=== PATIENT | female | born 1950 | race Two or more races ===

== ENCOUNTER 2017-04-19 22:46 | Emergency (ER) | payer OTHER ==
[~2017-04-19] VITALS: Ht 162.6 cm; Wt 81.6 kg
--- NOTE | 2017-04-19 23:20 | NUR ---
TO BED 4 A 66 YO FEMALE BIBFAMILY WITH C/O RT KNEE PAIN AND LEFT WRIST PAIN S/P "FELL WHILE GETTING OUT OF THE CAR"; DISTAL CMS INTACT. DENIES HEAD TRAUMA. PATIENT IS AAOX4, NAD NOTED, WITH BP AT 213/86, PER PATIENT SHE TOOK HYDRALAZINE PO 10MINS ROOM ATTENDANTS. INITIATED COMFORT MEASURES, AWAITING FOR ER MD LAGUNA.
[2017-04-20] MEDS ORDERED: HYDROCODONE/APAP 5/325MG 1 EACH TABLET ONE (00:28)
[2017-04-20] MEDS ORDERED: ONDANSETRON 4 MG TAB.RAPDIS ONE (00:28)
[2017-04-20] MEDS ORDERED: ONDANSETRON 4 MG TAB.RAPDIS PO ONE (00:30)
[2017-04-20] MEDS ORDERED: HYDROCODONE/APAP 5/325MG 1 EACH TABLET PO ONE (00:30)
--- NOTE | 2017-04-20 00:45 | NUR ---
XR AT BEDSIDE.
--- NOTE | 2017-04-20 02:05 | NUR ---
DR SÁNCHEZ AT BEDSIDE TALKING TO PATIENT AND FAMILY.
--- NOTE | 2017-04-20 03:16 | NUR ---
Patient discharged to home in stable condition. Written and verbal after care instructions given. Patient and family verbalized understanding of instruction. Patient walking with a walker, with right knee immobilizer on, intact distal cms. No further complaints.
[2017-04-20 03:17] VITALS: BP 158/78
== END 2017-04-20 03:18 | disposition home or self-care (01) ==
LOC: ER 22:51
DX: S82.001A Unspecified fracture of right patella, initial encounter for closed fracture (principal); S20.211A Contusion of right front wall of thorax, initial encounter; S60.222A Contusion of left hand, initial encounter; S60.221A Contusion of right hand, initial encounter; E03.9 Hypothyroidism, unspecified; E11.9 Type 2 diabetes mellitus without complications; I10 Essential (primary) hypertension; W01.0XXA Fall on same level from slipping, tripping and stumbling without subsequent striking against object, initial encounter; Y92.89 Other specified places as the place of occurrence of the external cause; Y93.89 Activity, other specified; Y99.8 Other external cause status
CPT/HCPCS: 71100-TC; 73130-TC; 73564-TC; A4606; Q0162; Z7610

== ENCOUNTER 2018-05-18 21:50 | Emergency (ER) | payer OTHER ==
[~2018-05-18] VITALS: Ht 165.1 cm; Wt 77.1 kg
--- NOTE | 2018-05-18 22:00 | NUR ---
BIB RA PT AA/OX4. COMPLAINING OF LT SHOULDER PAIN SINCE "2 O' CLOCK". HX OF HTN. EQUAL WREATH INSPECTOR. EQUAL FACIAL SYMMETRY. SBP AT 228. NO S/S OF SOB. SKIN PINK, WARM, DRY. ALL VSS. NAD. WILL CONTINUE TO MONITOR.
[2018-05-18] MEDS ORDERED: HYDROCODONE/APAP 5/325MG 1 EACH TABLET PO ONE (22:30)
[2018-05-18] MEDS ORDERED: IBUPROFEN 600 MG TABLET PO ONE ×2 (22:30→22:36)
[2018-05-18] MEDS ORDERED: HYDROCODONE/APAP 5/325MG 1 EACH TABLET ONE (22:36)
--- NOTE | 2018-05-18 22:40 | NUR ---
XRAY AT BEDSIDE
[2018-05-18] MEDS ORDERED: hydrALAZINE HCL IV 20 MG VIAL IV ONE (23:00)
[2018-05-18 23:05] LABS: BASOPHILS # (AUTO) 0.1 /CMM (0.0-0.2); BASOPHILS % (AUTO) 0.4 % (0.0-2.0); EOSINOPHILS % (AUTO) 0.4 % (0.0-6.0); HEMATOCRIT 34 % (33-45); HEMOGLOBIN 10.9 g/dL (11.5-14.8); LYMPHOCYTES # (AUTO) 1.7 /CMM (0.8-4.8); LYMPHOCYTES % (AUTO) 13.6 % (20.0-44.0); MEAN CORPUSCULAR HEMOGLOBIN 29 PG (26.0-33.0); MEAN CORPUSCULAR HGB CONC 32 g/dl (31.0-36.0); MEAN CORPUSCULAR VOLUME 89 fL (82-100); MONOCYTES # (AUTO) 0.7 /CMM (0.1-1.30); MONOCYTES % (AUTO) 5.5 % (2.0-12.0); NEUTROPHILS % (AUTO) 80.1 % (43.0-81.0); PLATELET COUNT (AUTO) 243 /CMM (150-450); RDW COEFFICIENT OF VARIATION 13.3 (11.5-15.0); RED BLOOD CELL COUNT(AUTO) 3.76 MIL/uL (4.0-5.2); WHITE BLOOD COUNT (AUTO) 12.5 K/uL (4.3-11.0)
[2018-05-18 23:14] LABS: CARBON DIOXIDE 26 mmol/L (21-32); UREA NITROGEN, BLOOD 47 mg/dL (7-18)
[2018-05-18 23:18] LABS: INR 0.9 (0.87-1.13)
[2018-05-18 23:22] LABS: TROPONIN I < 0.017 ng/mL (0.00-0.056)
[2018-05-18] MEDS ORDERED: LABETALOL HCL IV 100MG VIAL ONE (23:25)
[2018-05-18] MEDS ORDERED: LABETALOL 20 MG/4 ML VIAL IV ONE (23:30)
[2018-05-18 23:48] LABS: SODIUM SERUM 133 mmol/L (136-145)
[2018-05-18 23:51] LABS: CALCIUM, SERUM 8.6 mg/dL (8.5-10.1); CHLORIDE 101 mmol/L (98-107); CREATININE 1.9 mg/dL (0.6-1.3); GLUCOSE 360 mg/dL (74-106); POTASSIUM 6.4 mmol/L (3.5-5.1)
[2018-05-19] MEDS ORDERED: INSULIN REGULAR, HUMAN 100 UNIT/ML 10 ML VIAL IV ONE (00:30)
[2018-05-19] MEDS ORDERED: INSULIN REGULAR, HUMAN 100 UNIT/ML 10 ML VIAL ONE (00:43)
--- NOTE | 2018-05-19 01:21 | NUR ---
Patient is resting comfortably in bed with eyes closed. Easily aroused. VSS. FAMILY AT BEDSIDE
--- NOTE | 2018-05-19 02:13 | NUR ---
Patient discharged to home in stable condition. Written and verbal after care instructions given. Patient verbalizes understanding of instruction. IV removed. Catheter intact and site benign. Pressure and 4x4 applied to site. No bleeding noted. AMBULATED WITH STEADY GAIT UPON DC. Addendum: 05/19/18 at 0214 by LOYD INSTRUCTED NOT TO OPERATE OR DRIVE HEAVY MACHINERY.
[2018-05-19 02:15] VITALS: BP 158/60
== END 2018-05-19 02:16 | disposition home or self-care (01) ==
LOC: ER 21:51
DX: M25.512 Pain in left shoulder (principal); E03.9 Hypothyroidism, unspecified; E11.65 Type 2 diabetes mellitus with hyperglycemia; I10 Essential (primary) hypertension; E87.5 Hyperkalemia; N28.9 Disorder of kidney and ureter, unspecified; Z95.1 Presence of aortocoronary bypass graft; Z79.4 Long term (current) use of insulin
CPT/HCPCS: 36415; 71045; 73030; 80048; 82962; 84484; 85025; 85730; 93005; 96374; 96375; 99285; A4606; J1815; J3490 ×2; Z7610

== ENCOUNTER 2019-09-09 15:01 | Emergency (ER) | payer MEDICARE, OTHER ==
[~2019-09-09] VITALS: Ht 165.1 cm; Wt 64.9 kg
[2019-09-09 15:13] VITALS: BP 154/81
--- NOTE | 2019-09-09 15:15 | NUR ---
BIBFAMILY, C/O NON-PRODUCTIVE COUGH X1 WEEK AND WEAKNESS CURRENTLY ON ANTIBIOTIC, PT AWAKE, ALERT, NAD NOTED, VSS, PENDING MD LAGUNA
[2019-09-09] MEDS ORDERED: ALBUTEROL FS 2.5 MG/3 ML VIAL.NEB NEB ONE (15:30)
[2019-09-09] MEDS ORDERED: ALBUTEROL FS 2.5 MG/3 ML VIAL.NEB ONE (15:31)
[2019-09-09 15:44] LABS: BASOPHILS # (AUTO) 0.2 /CMM (0.0-0.2); BASOPHILS % (AUTO) 3.1 % (0.0-2.0); HEMATOCRIT 30 % (33-45); HEMOGLOBIN 10.1 g/dL (11.5-14.8); LYMPHOCYTES # (AUTO) 1.2 /CMM (0.8-4.8); LYMPHOCYTES % (AUTO) 15.6 % (20.0-44.0); MEAN CORPUSCULAR HGB CONC 34 g/dl (31.0-36.0); MEAN CORPUSCULAR VOLUME 87 fL (82-100); MONOCYTES # (AUTO) 0.3 /CMM (0.1-1.30); MONOCYTES % (AUTO) 4.4 % (2.0-12.0); NEUTROPHILS # (AUTO) 5.6 /CMM (1.8-8.9); NEUTROPHILS % (AUTO) 75.9 % (43.0-81.0); PLATELET COUNT (AUTO) 257 /CMM (150-450); RED BLOOD CELL COUNT(AUTO) 3.48 MIL/uL (4.0-5.2); WHITE BLOOD COUNT (AUTO) 7.4 K/uL (4.3-11.0)
[2019-09-09 16:15] LABS: CALCIUM, SERUM 9.2 mg/dL (8.5-10.1); CREATININE 1.9 mg/dL (0.6-1.3); POTASSIUM 4.7 mmol/L (3.5-5.1)
--- NOTE | 2019-09-09 16:36 | NUR ---
URINE COLLECTED AND SENT TO LAB
[2019-09-09 17:31] LABS: EOSINOPHILS % (MANUAL) 3 % (0-4); LYMPHOCYTES % (MANUAL) 15 % (16-48); MONOCYTES % (MANUAL) 7 % (0-11.0); NEUTROPHILS % (MANUAL) 71 (42-76); REACTIVE LYMPHOCYTES 4 % (0-0)
== END 2019-09-09 16:49 | disposition home or self-care (01) ==
LOC: ER 15:02
DX: D64.9 Anemia, unspecified (principal); R05 Cough; R53.1 Weakness; E03.9 Hypothyroidism, unspecified; E11.22 Type 2 diabetes mellitus with diabetic chronic kidney disease; I12.9 Hypertensive chronic kidney disease with stage 1 through stage 4 chronic kidney disease, or unspecified chronic kidney disease; N18.9 Chronic kidney disease, unspecified; Z95.1 Presence of aortocoronary bypass graft
CPT/HCPCS: 36415; 71045-TC; 80048-TC; 85025-TC

== ENCOUNTER 2022-06-16 20:02 | Inpatient (IN) | payer MEDICARE, MEDICAID ==
[~2022-06-16] VITALS: Ht 152.4 cm; Wt 58.1 kg
[2022-06-16] MEDS ORDERED: MORPHINE SULFATE INJ 4 MG/ML DISP.SYRIN ONE (20:28)
[2022-06-16] MEDS ORDERED: ONDANSETRON HCL/PF 4 MG/2 ML VIAL ONE (20:28)
[2022-06-16] MEDS ORDERED: MORPHINE SULFATE INJ 2 MG/ML DISP.SYRIN IV ONE (20:30)
[2022-06-16] MEDS ORDERED: ONDANSETRON HCL/PF 4 MG/2 ML VIAL IVP ONE (20:30)
[2022-06-16 21:00] LABS: BASOPHILS % (AUTO) 0.5 % (0.0-2.0); EOSINOPHILS % (AUTO) 1.6 % (0.0-6.0); HEMATOCRIT 29 % (33-45); HEMOGLOBIN 9.7 g/dL (11.5-14.8); LYMPHOCYTES # (AUTO) 1.4 K/uL (0.8-4.8); LYMPHOCYTES % (AUTO) 17.5 % (20.0-44.0); MEAN CORPUSCULAR HGB CONC 33 g/dl (31.0-36.0); MEAN CORPUSCULAR VOLUME 90 fL (82-100); MONOCYTES # (AUTO) 0.6 K/uL (0.1-1.30); MONOCYTES % (AUTO) 7.7 % (2.0-12.0); NEUTROPHILS # (AUTO) 5.7 K/uL (1.8-8.9); NEUTROPHILS % (AUTO) 72.7 % (43.0-81.0); PLATELET COUNT (AUTO) 201 K/uL (150-450); RED BLOOD CELL COUNT(AUTO) 3.22 MIL/uL (4.0-5.2); WHITE BLOOD COUNT (AUTO) 7.8 K/uL (4.3-11.0)
--- NOTE | 2022-06-16 21:07 | NUR ---
AZUL 889 FROM HOME FOR C/O L HIP PAIN S/P FALL. POSSIBLE FRAC. PLACED IN BED 11 ON MONITOR AND PULSE OX. WORK UP DONE, PENDING XRAY RESULTS. PENDING ADMISSION.
--- NOTE | 2022-06-16 21:08 | NUR ---
FAMILY MADE AWARE OF PLAN OF CARE.
[2022-06-16 21:29] LABS: ALBUMIN 3.7 g/dL (3.4-5.0); BILIRUBIN,DIRECT 0.2 mg/dL (0.0-0.2); BILIRUBIN,TOTAL 0.4 mg/dL (0.2-1.0); TOTAL PROTEIN, SERUM 7.5 g/dL (6.4-8.2)
[2022-06-16 21:37] LABS: CALCIUM, SERUM 9.3 mg/dL (8.5-10.1); POTASSIUM 4.7 mmol/L (3.5-5.1)
--- NOTE | 2022-06-16 22:51 | NUR ---
Radha Borges Daughter in law
[2022-06-16] MEDS ORDERED: DOXA2TAB2 PO (23:12)
[2022-06-16] MEDS ORDERED: CARV25TA2 PO (23:12)
[2022-06-16] MEDS ORDERED: LEVO50TA8 PO (23:12)
[2022-06-16] MEDS ORDERED: ATOR80TA PO (23:12)
[2022-06-16] MEDS ORDERED: ASPI-1420 PO (23:12)
[2022-06-16] MEDS ORDERED: HYDR100T27 PO (23:12)
[2022-06-16] MEDS ORDERED: PANT40TA2 PO (23:12)
[2022-06-16] MEDS ORDERED: INSU100V11 SQ (23:12)
[2022-06-16] MEDS ORDERED: OMEP40CA21 PO (23:12)
[2022-06-16] MEDS ORDERED: CLON0.2T PO (23:12)
[2022-06-16] MEDS ORDERED: AMLO-213 PO (23:12)
[2022-06-16] MEDS ORDERED: FERR325T23 PO (23:12)
--- NOTE | 2022-06-17 00:45 | NUR ---
REPORT GIVEN TO GERRY LUNDBERG FOR [facility]
[2022-06-17 01:40] VITALS: BP_SYST 138; BP_SYST 164; BP_DIAS 71; BP_DIAS 84
--- NOTE | 2022-06-17 01:43 | NUR ---
WHEELED PATIENT TO ROOM
--- NOTE | 2022-06-17 02:36 | NUR ---
MS MARKETING REPS SPORTS AND ENTERTAINMENT NOTE PATIENT ARRIVED ON UNIT VIA GURNEY, ALERT/ORIENTED X 4, PATIENT PRIMARILY PASHTO SPEAKING, ABLE TO MAKE SOME NEEDS KNOWN. PT STABLE ON RA, NO S/S OF DISTRESS OR SOB NOTED, BREATHING EVEN AND UNLABORED. IV ACCESS ON LAC #20G INTACT AND FLUSHING WELL. PATIENT C/O OF LEFT HIP PAIN, AWAITING MD ORDERS. PATIENT BELONGINGS DOCUMENTED. ORIENTED PATIENT TO ROOM AND HOW TO USE CALL LIGHT. SAFETY MEASURES IN PLACE: CALL LIGHT WITHIN REACH, SIDE RAILS UP X 2, BED LOCKED IN LOWEST POSITION, BED ALARM ON. WILL CONTINUE TO MONITOR PATIENT
[2022-06-17] MEDS: HYDROMORPHONE 1 MG/1 ML DISP.SYRIN IV PRN ×3 (03:26→19:58)
[2022-06-17] MEDS: IV 1/2NS 1000 ML 1,000 ML IV SCH ×2 (03:27→15:50)
[2022-06-17] MEDS ORDERED: ZOLPIDEM TARTRATE 5 MG TABLET PO PRN ×2 (03:30→11:30)
[2022-06-17] MEDS ORDERED: ONDANSETRON HCL/PF 4 MG/2 ML VIAL IV PRN (03:30)
[2022-06-17] MEDS ORDERED: ACETAMINOPHEN 325 MG TABLET PO PRN ×2 (03:30→11:30)
[2022-06-17] MEDS ORDERED: DEXTROSE 50%-WATER 50 ML DISP.SYRIN IV PRN ×3 (03:30→11:30)
[2022-06-17 04:00] VITALS: BP 138/84
[2022-06-17] MEDS: BLOOD SUGAR DIAGNOSTIC 1 EACH STRIP IN SCH ×3 (06:17→17:49)
[2022-06-17] MEDS: INSULIN REGULAR, HUMAN 100 UNIT/ML 3 ML VIAL SQ PRN ×5 (06:17→17:49)
[2022-06-17 06:34] LABS: BASOPHILS % (AUTO) 0.4 % (0.0-2.0); EOSINOPHILS % (AUTO) 0.2 % (0.0-6.0); HEMATOCRIT 27 % (33-45); HEMOGLOBIN 8.9 g/dL (11.5-14.8); LYMPHOCYTES # (AUTO) 0.8 K/uL (0.8-4.8); LYMPHOCYTES % (AUTO) 10.6 % (20.0-44.0); MEAN CORPUSCULAR HGB CONC 34 g/dl (31.0-36.0); MEAN CORPUSCULAR VOLUME 90 fL (82-100); MONOCYTES # (AUTO) 0.4 K/uL (0.1-1.30); MONOCYTES % (AUTO) 5.4 % (2.0-12.0); NEUTROPHILS # (AUTO) 6.5 K/uL (1.8-8.9); NEUTROPHILS % (AUTO) 83.4 % (43.0-81.0); PLATELET COUNT (AUTO) 185 K/uL (150-450); RED BLOOD CELL COUNT(AUTO) 2.94 MIL/uL (4.0-5.2); WHITE BLOOD COUNT (AUTO) 7.8 K/uL (4.3-11.0)
--- NOTE | 2022-06-17 06:42 | NUR ---
DIRECTOR NON PROFIT CLOSING NOTE PATIENT SLEEPING IN BED, ALERT/ORIENTED X 4, PATIENT B[place] SPEAKING. PATIENT STABLE ON RA, NO S/S OF DISTRESS OR SOB NOTED, BREATHING EVEN AND UNLABORED. PATIENT ON EXTERNAL RECLAMATION SUPERVISOR READING SINUS RHYTHM WITH BBB AND OCCASSIONAL PVC'S, HR: 73 . PATIENT KEPT NPO EXCEPT MEDS. LEFT AC IV ACCESS INTACT AND INFUSING 1/2 NS @ 100 ML/HR. MEDICATIONS GIVEN ORDERED, PT NEEDS MET THROUGHOUT SHIFT. SAFETY MEASURES IN PLACE: CALL LIGHT WITHIN REACH, SIDE RAILS UP X 2, BED LOCKED IN LOWEST POSITION, BED ALARM ON. WILL ENDORSE TO DAYSHIFT NURSE FOR CONTINUITY OF CARE
[2022-06-17 07:08] LABS: CALCIUM, SERUM 8.9 mg/dL (8.5-10.1); CREATININE 2.1 mg/dL (0.6-1.3); POTASSIUM 5.2 mmol/L (3.5-5.1)
--- NOTE | 2022-06-17 07:37 | NUR ---
MS RN OPENING NOTE RECEIVED PT ASLEEP, EASILY AROUSED. PT IS A/O X4, ABLE TO MAKE NEEDS KNOWN. ON RA, TOLERATING WELL. NO SOB NOTED. NOT IN ANY SIGN OF RESPIRATORY DISTRESS. ON TELE OUTBOUND TELEMARKETER WITH CURRENT READING OF NORMAL SINUS RHYTHM WITH HR 70. IV ACCESS IN LAC G #20 INTACT AND PATENT WITH 1/2 NS INFUSING AT 100ML/HR. SAFETY MEASURES IN PLACE: BED IN LOWEST AND LOCKED POSITION, SIDE RAILS UPX2, AND CALL LIGHT WITHIN REACH. WILL CONTINUE TO MONITOR PT.
[2022-06-17 08:00] VITALS: BP 124/58
[2022-06-17 08:08] LABS: BILIRUBIN,URINE NEGATIVE (NEGATIVE); COLOR,URINE YELLOW (YELLOW); LEUKOCYTE ESTERASE ,URINE SMALL (NEGATIVE); NITRITE, URINE NEGATIVE (NEGATIVE); PROTEIN,URINE 100 mg/dl (NEGATIVE); UGLUCOSE NEGATIVE (NEGATIVE); UROBILINOGEN,URINE 0.2 EU/dL (0.2)
[2022-06-17 08:47] LABS: BACTERIA,URINE None seen /HPF (None Seen); RBC,URINE NONE SEEN /HPF (0-2); SQUAMOUS EPITHELIAL CELL,UR Few /HPF (None Seen); WBC,URINE 0-2 /HPF (0-3)
[2022-06-17] MEDS: FERROUS SULFATE (325 MG) 325 MG/TAB TABLET PO SCH ×2 (08:48→17:48)
[2022-06-17] MEDS: ASPIRIN EC 81 MG TABLET.DR PO SCH (08:48)
[2022-06-17] MEDS: LEVOTHYROXINE SODIUM 50 MCG TABLET PO SCH (08:48)
[2022-06-17] MEDS: AMLODIPINE BESYLATE 10 MG TABLET PO SCH (08:49)
[2022-06-17] MEDS: CARVEDILOL 12.5 MG TABLET PO SCH ×2 (08:51→17:48)
--- NOTE | 2022-06-17 11:07 | NUR ---
RN NOTE PT C/O NAUSEA AND VOMITED X1 AND REQUESTED FOR ZOFRAN. ZOFRAN 4MG GIVEN ORDERED PRN Q4HR. WILL MONITOR AND REASSESS PT.
[2022-06-17] MEDS ORDERED: IV 1/2NS 1000 ML 1,000 ML IV PRN (11:30)
[2022-06-17] MEDS ORDERED: ONDANSETRON HCL/PF 4 MG/2 ML VIAL IVP PRN (11:30)
[2022-06-17] MEDS ORDERED: HYDROMORPHONE 1 MG/1 ML DISP.SYRIN IV PRN (11:30)
[2022-06-17] MEDS ORDERED: INSULIN REGULAR, HUMAN 100 UNIT/ML 3 ML VIAL SQ PRN (11:30)
[2022-06-17 12:00] VITALS: BP 176/62
[2022-06-17] MEDS ORDERED: BLOOD SUGAR DIAGNOSTIC 1 EACH STRIP IN SCH ×3 (12:00)
[2022-06-17] MEDS: BLOOD SUGAR DIAGNOSTIC 1 EACH STRIP VI SCH ×3 (12:28→22:00)
--- NOTE | 2022-06-17 12:30 | NUR ---
RN NOTE ACCUCHECK AND INSULIN DONE UNDER MODERATE SLIDING SCALE ACHS NOT THE Q6HRS NPO. PT IS NOT NPO AT THIS TIME.
--- NOTE | 2022-06-17 14:00 | NUR ---
RN NOTE PER CHARGED NURSEVAHE, RENAL ULTRASOUNDS WAS DONE, AND PER ELECTROENCEPHALOGRAM TECHNOLOGIST, PT NOTED WITH URINARY RETENTION OF 1L. PER CHARGED NURSE TO INSERT A JETER ON THE PT. JETER CATHETER INSERTED WITH 4OOML OUTPUT AT THIS TIME. WILL MONITOR PT FOR URINARY RETENTION.
[2022-06-17 16:15] LABS: CREATININE, URINE 38.5 MG/DL (30.0-125.0)
--- NOTE | 2022-06-17 16:26 | NUR ---
RN NOTE RECEIVED A CALL FROM DR. CONSTANTINO, ANESTHESIOLOGIST WITH ORDERS TO DO A TYPE AND SCREEN AND 2 UNITS PACK RBCS ON STANDBY, JUST IN CASE TRANSFUSION IS NEEDED DURING SURGERY, TO KEEP HEMOGLOBIN ABOVE 8.
--- NOTE | 2022-06-17 17:50 | NUR ---
RN NOTE ACCUCHECK AND INSULIN DONE UNDER MODERATE SLIDING SCALE ACHS NOT THE Q6HRS NPO. PT IS NOT NPO AT THIS TIME.
[2022-06-17] MEDS: DOXAZOSIN MESYLATE (1 MG) 1 MG TABLET PO SCH (18:02)
--- NOTE | 2022-06-17 19:30 | NUR ---
noc rn opening received patient in bed, alert and oriented, thai speaking. no s/s of apparent distress on room air. pain when she moves. tele monitor reading sr with 75 bpm at this time. michael.ankur #20 g running 1/2 ns @100mls/hr. 2 family members at bedside, was endorsed to me that patient is in for procedure for tomorrow but POA which is the daughter Gloria refusing to sign at this time wanting to speak to the Doctor first. made charge nurse, Ita about the situation. re-oriented and encouraged wit the use of call light. safety in place. will continue with plan of care for patient.
[2022-06-17 20:00] VITALS: BP 143/57
--- NOTE | 2022-06-17 20:00 | NUR ---
noc rn note spoke to Gloria, daughter, again before she left and asked who the DPOA for patient and per Gloria, her sister ALYSON is the DPOA for patient. did tell Gloria that per report, Dr. Duran's PA, Nayeli Soriano, already talked with ALYSON on the telephone regarding the procedure already and it should be the DPOA that will give consent. Talked to Alyson on the phone as well and per her she is still wanting to hear from nephrology standpoint. Will further clarify later when the sched for the procedure comes out.
--- NOTE | 2022-06-17 20:00 | NUR ---
given dilaudid 1mg PRN as ordered. patient in pain after turning and repositioning. v/s up at this time. will re-assess.
--- NOTE | 2022-06-17 20:12 | NUR ---
GAME DESIGN INSTRUCTOR CLOSING NOTE PT AWAKE AND RESTING IN BED. PT IS A/O X4, ABLE TO MAKE NEEDS KNOWN. ON RA, TOLERATING WELL. NO SOB NOTED. NOT IN ANY SIGN OF RESPIRATORY DISTRESS. ON TELE BUS AND RAIL OPERATOR WITH CURRENT READING OF NORMAL SINUS RHYTHM WITH BBB, HR 75. IV ACCESS IN LAC G #20 INTACT AND PATENT WITH 1/2 NS INFUSING AT 100ML/HR. ALL NEEDS ATTENDED. KEPT CLEAN AND COMFORTABLE. SAFETY MEASURES IN PLACE: BED IN LOWEST AND LOCKED POSITION, SIDE RAILS UPX2, AND CALL LIGHT WITHIN REACH. ENDORSED TO MAMMAL KEEPER NURSE FOR EZEKIEL.
--- NOTE | 2022-06-17 20:42 | NUR ---
bp recheck 143/57 after pain medication will cont. to monitor.
[2022-06-17] MEDS: ATORVASTATIN 40 MG TABLET PO SCH (21:26)
--- NOTE | 2022-06-17 22:31 | NUR ---
noc rn note Talked with Gloria, Daughter on the phone since it is her number that is on the patient chart. Asked for Radha's number # [phone]. Dialed the number no answer. left a msg.
[2022-06-18] VITALS (18 sets, daily range): BP systolic 100–178; BP diastolic 44–87
[2022-06-18] MEDS: BLOOD SUGAR DIAGNOSTIC 1 EACH STRIP IN SCH ×4 (00:22→18:39)
[2022-06-18] MEDS: IV 1/2NS 1000 ML 1,000 ML IV SCH ×3 (02:37→19:25)
[2022-06-18] MEDS: HYDROMORPHONE 1 MG/1 ML DISP.SYRIN IV PRN ×2 (02:57→20:39)
[2022-06-18] MEDS: INSULIN REGULAR, HUMAN 100 UNIT/ML 3 ML VIAL SQ PRN (06:18)
--- NOTE | 2022-06-18 06:20 | NUR ---
noc rn note blood sugar 166 this am. non-administered insulin because of patient's npo status and per daughter patient's blood sugar usually goes down drastically.
[2022-06-18 06:46] LABS: BASOPHILS % (AUTO) 0.4 % (0.0-2.0); HEMATOCRIT 23 % (33-45); HEMOGLOBIN 7.9 g/dL (11.5-14.8); LYMPHOCYTES # (AUTO) 0.9 K/uL (0.8-4.8); LYMPHOCYTES % (AUTO) 14.5 % (20.0-44.0); MEAN CORPUSCULAR HGB CONC 34 g/dl (31.0-36.0); MEAN CORPUSCULAR VOLUME 90 fL (82-100); MONOCYTES # (AUTO) 0.6 K/uL (0.1-1.30); MONOCYTES % (AUTO) 9.5 % (2.0-12.0); NEUTROPHILS # (AUTO) 4.7 K/uL (1.8-8.9); NEUTROPHILS % (AUTO) 74.6 % (43.0-81.0); PLATELET COUNT (AUTO) 149 K/uL (150-450); RED BLOOD CELL COUNT(AUTO) 2.58 MIL/uL (4.0-5.2); WHITE BLOOD COUNT (AUTO) 6.3 K/uL (4.3-11.0)
--- NOTE | 2022-06-18 07:10 | NUR ---
ms rn received on bed, awake,alert,oriented x4, cuban speaking,not in any form of distress, s/p fall , fx left hip for surgery today.
[2022-06-18] MEDS: PANTOPRAZOLE 40 MG TABLET.DR PO SCH (07:30)
[2022-06-18] MEDS: BLOOD SUGAR DIAGNOSTIC 1 EACH STRIP VI SCH ×4 (07:30→22:00)
[2022-06-18] MEDS ORDERED: ANESTHESIA TRAY IN PYXIS 1 EA TRAY MC ONE ×2 (07:51→15:26)
[2022-06-18] MEDS ORDERED: BUPIVACAINE 0.25% 75 MG/30 ML VIAL ONE ×2 (07:51→13:26)
[2022-06-18] MEDS ORDERED: POLYMYXIN B SULFATE 500,000 UNITS ONE (07:51)
--- NOTE | 2022-06-18 08:00 | NUR ---
ms rn daughter Radha called , wants to speak w/ kidney doctor for risk of having surgery,gave dr. ca phone number.
[2022-06-18 08:50] LABS: CALCIUM, SERUM 8.4 mg/dL (8.5-10.1); CREATININE 2.1 mg/dL (0.6-1.3); MAGNESIUM 2.2 mg/dL (1.8-2.4); PHOSPHORUS 4.9 mg/dL (2.5-4.9)
[2022-06-18] MEDS: CARVEDILOL 12.5 MG TABLET PO SCH ×2 (09:00→17:00)
[2022-06-18] MEDS: ASPIRIN EC 81 MG TABLET.DR PO SCH (09:00)
[2022-06-18] MEDS: FERROUS SULFATE (325 MG) 325 MG/TAB TABLET PO SCH ×2 (09:00→17:00)
[2022-06-18] MEDS: AMLODIPINE BESYLATE 10 MG TABLET PO SCH (09:00)
[2022-06-18] MEDS: LEVOTHYROXINE SODIUM 50 MCG TABLET PO SCH (09:00)
--- NOTE | 2022-06-18 09:00 | NUR ---
ms shawnee solomon called, agreeing w/ surgery, shawnee cortes witnessed tel phone consent.
--- NOTE | 2022-06-18 11:03 | NUR ---
ms rn started on blood transfusion w/o reaction, v/s monitored.
[2022-06-18] MEDS ORDERED: FENTANYL PF 100MCG/2ML AMPUL ONE (13:44)
[2022-06-18] MEDS ORDERED: MIDAZOLAM HCL 2 MG/2ML VIAL ONE (13:44)
[2022-06-18] MEDS ORDERED: ROCURONIUM BROMIDE 50 MG/5 ML ONE (13:45)
[2022-06-18] MEDS ORDERED: FAMOTIDINE/PF INJ 20 MG/2 ML VIAL IV ONE (13:45)
[2022-06-18] MEDS ORDERED: hydrALAZINE HCL IV 20 MG VIAL ONE (15:21)
--- NOTE | 2022-06-18 16:50 | NUR ---
ms editor farm journal called, patient will be transferred to [facility] for observation, will call for report, belongings will be sent to icu.
[2022-06-18] MEDS ORDERED: DOCUSATE SODIUM 100 MG CAPSULE PO PRN (17:00)
[2022-06-18] MEDS ORDERED: FUROSEMIDE 20 MG/2 ML VIAL IV ONE (17:00)
[2022-06-18] MEDS ORDERED: MORPHINE SULFATE INJ 4 MG/ML DISP.SYRIN IV PRN (17:00)
[2022-06-18] MEDS ORDERED: ONDANSETRON HCL/PF 4 MG/2 ML VIAL IVP PRN (17:00)
[2022-06-18] MEDS: DOXAZOSIN MESYLATE (1 MG) 1 MG TABLET PO SCH (18:00)
[2022-06-18 20:13] LABS: BASOPHILS % (AUTO) 0.1 % (0.0-2.0); EOSINOPHILS % (AUTO) 0.1 % (0.0-6.0); HEMATOCRIT 32 % (33-45); HEMOGLOBIN 10.8 g/dL (11.5-14.8); LYMPHOCYTES # (AUTO) 0.2 K/uL (0.8-4.8); LYMPHOCYTES % (AUTO) 2.3 % (20.0-44.0); MEAN CORPUSCULAR HGB CONC 34 g/dl (31.0-36.0); MEAN CORPUSCULAR VOLUME 89 fL (82-100); MONOCYTES # (AUTO) 0.4 K/uL (0.1-1.30); MONOCYTES % (AUTO) 4.2 % (2.0-12.0); NEUTROPHILS % (AUTO) 93.3 % (43.0-81.0); PLATELET COUNT (AUTO) 125 K/uL (150-450); RED BLOOD CELL COUNT(AUTO) 3.62 MIL/uL (4.0-5.2); WHITE BLOOD COUNT (AUTO) 9.7 K/uL (4.3-11.0)
[2022-06-18] MEDS: ANCEF 1 GM/50 ML D5W IV SCH ×2 (21:58)
[2022-06-18] MEDS ORDERED: SENNOSIDES 8.6 MG TABLET PO PRN (22:00)
[2022-06-18] MEDS: ATORVASTATIN 40 MG TABLET PO SCH (22:00)
[2022-06-18] MEDS ORDERED: BISACODYL SUPP (10 MG) 10 MG/SUPP.RECT SUPP.RECT RC PRN (22:00)
[2022-06-19] VITALS (25 sets, daily range): BP systolic 122–163; BP diastolic 48–107
[2022-06-19] MEDS: BLOOD SUGAR DIAGNOSTIC 1 EACH STRIP IN SCH ×3 (00:47→12:23)
[2022-06-19 05:28] LABS: BASOPHILS % (AUTO) 0.1 % (0.0-2.0); EOSINOPHILS % (AUTO) 0.1 % (0.0-6.0); HEMATOCRIT 29 % (33-45); HEMOGLOBIN 9.8 g/dL (11.5-14.8); LYMPHOCYTES # (AUTO) 0.5 K/uL (0.8-4.8); LYMPHOCYTES % (AUTO) 3.7 % (20.0-44.0); MEAN CORPUSCULAR HGB CONC 34 g/dl (31.0-36.0); MEAN CORPUSCULAR VOLUME 89 fL (82-100); MONOCYTES # (AUTO) 0.9 K/uL (0.1-1.30); MONOCYTES % (AUTO) 6.3 % (2.0-12.0); NEUTROPHILS # (AUTO) 12.5 K/uL (1.8-8.9); NEUTROPHILS % (AUTO) 89.8 % (43.0-81.0); PLATELET COUNT (AUTO) 132 K/uL (150-450); RED BLOOD CELL COUNT(AUTO) 3.28 MIL/uL (4.0-5.2); WHITE BLOOD COUNT (AUTO) 13.9 K/uL (4.3-11.0)
[2022-06-19] MEDS: IV 1/2NS 1000 ML 1,000 ML IV SCH ×2 (05:31→15:09)
[2022-06-19 05:50] LABS: CALCIUM, SERUM 7.9 mg/dL (8.5-10.1); CREATININE 2.5 mg/dL (0.6-1.3); MAGNESIUM 1.8 mg/dL (1.8-2.4); PHOSPHORUS 5.7 mg/dL (2.5-4.9); POTASSIUM 4.8 mmol/L (3.5-5.1)
[2022-06-19] MEDS: ANCEF 1 GM/50 ML D5W IV SCH ×2 (06:44)
[2022-06-19] MEDS: BLOOD SUGAR DIAGNOSTIC 1 EACH STRIP VI SCH ×4 (06:49→21:06)
--- NOTE | 2022-06-19 07:30 | NUR ---
RN NOTE PT OBSERVED IN BED WITH HOB >30 DEGREES. PT IS ON 5L SIMPLE MASK TOLERATING WELL WITH NO SIGNS OF DISTRESS OR LABORED BREATHING O2 SAT 100%. PT IS A/OX2-3 PORTUGUESE AND UNDERSTANDS LITTLE JAPANESE. PT TELE MONITOR SR AT THIS TIME; FC IS IN PLACE DRAINING URINE TO GRAVITY. NPO EXCEPT FOR MEDS AT THIS TIME. IV ACCESS L AC AND R FA INFUSING WITH 1/2 NS @ 100 ML/HR. BED IS LOCKED IN LOWEST POSITION X2 BED RAILS UP CALL GO IS WITHIN REACH AND ALL HOSPITAL SAFETY PROTOCOLS ARE IN PLACE. WILL CONTINUE TO MONITOR THIS SHIFT.
[2022-06-19] MEDS: FERROUS SULFATE (325 MG) 325 MG/TAB TABLET PO SCH ×2 (08:26→16:03)
[2022-06-19] MEDS: LEVOTHYROXINE SODIUM 50 MCG TABLET PO SCH (08:27)
[2022-06-19] MEDS: ASPIRIN EC 81 MG TABLET.DR PO SCH (08:27)
[2022-06-19] MEDS: AMLODIPINE BESYLATE 10 MG TABLET PO SCH (08:27)
[2022-06-19] MEDS: CARVEDILOL 12.5 MG TABLET PO SCH ×2 (08:30→16:03)
[2022-06-19] MEDS: ENOXAPARIN SODIUM 30 MG/0.3 ML DISP.SYRIN SQ SCH (08:30)
[2022-06-19] MEDS: PANTOPRAZOLE 40 MG TABLET.DR PO SCH (08:31)
[2022-06-19] MEDS ORDERED: HYDROMORPHONE 1 MG/1 ML DISP.SYRIN IV PRN (11:00)
[2022-06-19] MEDS: INSULIN REGULAR, HUMAN 100 UNIT/ML 3 ML VIAL SQ PRN ×2 (12:31→17:46)
[2022-06-19] MEDS: DOXAZOSIN MESYLATE (1 MG) 1 MG TABLET PO SCH (17:40)
--- NOTE | 2022-06-19 18:40 | NUR ---
RN NOTE: TRANSFER PT IS STABLE AT THIS TIME AND TRANSFERRED TO . REPORT GIVEN TO TAMIKA MONTOYA. PT TRANSFERRED WITH ALL MEDICATIONS AND BELONGINGS INCLUDING UPPER AND LOWER DENTURES.
--- NOTE | 2022-06-19 18:56 | NUR ---
ms rn received a new transfer from icu,71 year old female, s/p left hip ORIF, awake,alert,oriented x3, surgical site w/ dressing dry and intact, denies pain at this time, nsr on monitor, hoang intact w/ yellowish urine output, reposition for comfort,all needs attended.
--- NOTE | 2022-06-19 19:30 | NUR ---
RN OPENING NOTE PATIENT RECEIVED IN BED, EYES CLOSED, AWAKENED WITH VERBAL AND TOUCH STIMULI. PATIENT IS A/O X 2-3 AT THIS TIME, NOTED TO BE MILDLY LETHARGIC. PATIENT ON 2 LPM O2 SUPPLEMENT VIA NC. TOLERATING WELL, BREATHING EVEN AND UNLABORED, NO SOB NOTED, O2 SAT 96%. PATIENT'S TELE MONITOR READS SR 80 BPM. JETER CATHETER DRAINING YELLOW URINE VIA GRAVITY. PATIENT HAS LAC 2O G RUNNING IVF AND A RFA IV ACCESS ON SALINE LOCK. SAFETY MEASURES IN PLACE: BED LOCKED AND IN LOWEST POSITION, CALL LIGHT WITHIN REACH, SIDE RAILS UP. WILL MONITOR PATIENT CLOSELY.
[2022-06-19] MEDS: ATORVASTATIN 40 MG TABLET PO SCH (21:06)
[2022-06-19] MEDS: *INSULIN REGULAR(HUMULIN R)HUM 100 UNIT/ML VIAL SQ PRN (21:18)
--- NOTE | 2022-06-19 21:18 | NUR ---
RN NOTE BS 111 MG/DL, NO COVERAGE GIVEN. WILL PROVIDE PATIENT FOOD THAT FAMILY BROUGHT. WILL MONITOR FOR HYPO/HYPERGLYCEMIA.
[2022-06-20] VITALS: BP 154/51
[2022-06-20] MEDS: IV 1/2NS 1000 ML 1,000 ML IV SCH ×3 (01:39→21:15)
[2022-06-20 04:00] VITALS: BP 147/46
--- NOTE | 2022-06-20 05:23 | NUR ---
RN NOTE PATIENT SEEN SLEEPING. NOT IN ANY APPARENT DISTRESS
[2022-06-20 06:16] LABS: BASOPHILS % (AUTO) 0.3 % (0.0-2.0); EOSINOPHILS % (AUTO) 0.8 % (0.0-6.0); HEMATOCRIT 25 % (33-45); HEMOGLOBIN 8.4 g/dL (11.5-14.8); LYMPHOCYTES # (AUTO) 0.7 K/uL (0.8-4.8); LYMPHOCYTES % (AUTO) 8.1 % (20.0-44.0); MEAN CORPUSCULAR HGB CONC 34 g/dl (31.0-36.0); MEAN CORPUSCULAR VOLUME 88 fL (82-100); MONOCYTES # (AUTO) 0.7 K/uL (0.1-1.30); MONOCYTES % (AUTO) 8.9 % (2.0-12.0); NEUTROPHILS # (AUTO) 6.9 K/uL (1.8-8.9); NEUTROPHILS % (AUTO) 81.9 % (43.0-81.0); PLATELET COUNT (AUTO) 121 K/uL (150-450); RED BLOOD CELL COUNT(AUTO) 2.77 MIL/uL (4.0-5.2); WHITE BLOOD COUNT (AUTO) 8.4 K/uL (4.3-11.0)
[2022-06-20] MEDS: INSULIN REGULAR, HUMAN 100 UNIT/ML 3 ML VIAL SQ PRN ×3 (06:35→16:50)
[2022-06-20] MEDS: BLOOD SUGAR DIAGNOSTIC 1 EACH STRIP VI SCH ×4 (06:35→21:36)
--- NOTE | 2022-06-20 06:50 | NUR ---
RN CLOSING NOTE PATIENT IN BED, EYES CLOSED, AWAKENED WITH VERBAL AND TOUCH STIMULI. PATIENT IS A/O X 2-3 DURING THE SHIFT. PATIENT ON 2 LPM O2 SUPPLEMENT VIA NC. TOLERATING WELL, BREATHING EVEN AND UNLABORED, NO SOB NOTED, O2 SAT 97%. PATIENT'S TELE MONITOR READS SR 74 BPM WITH BBB. JETER CATHETER DRAINING YELLOW URINE VIA GRAVITY. PATIENT HAS LAC 2O G RUNNING 1/2 NS AT 100 ML/HR AND A RFA IV ACCESS ON SALINE LOCK. SAFETY MEASURES IN PLACE: BED LOCKED AND IN LOWEST POSITION, CALL LIGHT WITHIN REACH, SIDE RAILS UP. ALL NEEDS MET AND ATTENDED. ALL ORDERS CARRIED OUT. WILL ENDORSE TO DAY SHIFT NURSE FOR EZEKIEL.
[2022-06-20 06:53] LABS: CALCIUM, SERUM 7.7 mg/dL (8.5-10.1); CREATININE 2.2 mg/dL (0.6-1.3); MAGNESIUM 2.1 mg/dL (1.8-2.4); POTASSIUM 4.5 mmol/L (3.5-5.1)
--- NOTE | 2022-06-20 07:50 | NUR ---
MEDICARE SALES REPRESENTATIVE OPENING NOTE RECEIVED PT ASLEEP IN BED, EASILY AROUSED. PT A/O X2, REORIENTED PT NEEDED. ON O2 AT 2L/MIN VIA NASAL CANNULA, TOLERATING WELL. NO SOB NOTED. NOT IN ANY SIGN OF RESPIRATORY DISTRESS. ON TELE ASSET ADMINISTRATOR WITH CURRENT READING OF SINUS RHYTHM, HR 75. NO C/O CARDIAC DISTRESS VOICED OUT AT THIS TIME. IV ACCESS IN RFA G #20 SALINE LOCK AND LAC G#20 INTACT AND PATENT WITH 1/2 NS INFUSING AT 100ML/HR. SAFETY MEASURES IN PLACE: BED IN LOWEST AND LOCKED POSITION, SIDE RAILS UPX2, BED ALARM ON, AND CALL LIGHT WITHIN REACH. WILL CONTINUE TO MONITOR PT.
[2022-06-20 08:00] VITALS: BP 169/63
[2022-06-20] MEDS: PANTOPRAZOLE 40 MG TABLET.DR PO SCH (08:26)
[2022-06-20] MEDS: LEVOTHYROXINE SODIUM 50 MCG TABLET PO SCH (08:42)
[2022-06-20] MEDS: ASPIRIN EC 81 MG TABLET.DR PO SCH (08:43)
[2022-06-20] MEDS: FERROUS SULFATE (325 MG) 325 MG/TAB TABLET PO SCH ×2 (08:43→17:02)
[2022-06-20] MEDS: AMLODIPINE BESYLATE 10 MG TABLET PO SCH (08:43)
[2022-06-20] MEDS: CARVEDILOL 12.5 MG TABLET PO SCH ×2 (08:44→17:02)
[2022-06-20] MEDS: ENOXAPARIN SODIUM 30 MG/0.3 ML DISP.SYRIN SQ SCH (08:45)
[2022-06-20 12:00] VITALS: BP 149/70
[2022-06-20 16:00] VITALS: BP 177/66
[2022-06-20] MEDS: DOXAZOSIN MESYLATE (1 MG) 1 MG TABLET PO SCH (17:02)
--- NOTE | 2022-06-20 18:55 | NUR ---
STUDENT RECRUITER CLOSING NOTE PT ASLEEP IN BED, EASILY AROUSED. PT A/O X2, REORIENTED PT NEEDED. ON O2 AT 2L/MIN VIA NASAL CANNULA, TOLERATING WELL. NO SOB NOTED. NOT IN ANY SIGN OF RESPIRATORY DISTRESS. ON TELE GREEN END MAN WITH CURRENT READING OF SINUS RHYTHM, HR 72. NO C/O CARDIAC DISTRESS VOICED OUT AT THIS TIME. IV ACCESS IN RFA G #20 SALINE LOCK AND LAC G#20 INTACT AND PATENT WITH 1/2 NS INFUSING AT 100ML/HR. ALL NEEDS ATTENDED. KEPT CLEAN AND COMFORTABLE. SAFETY MEASURES IN PLACE: BED IN LOWEST AND LOCKED POSITION, SIDE RAILS UPX2, BED ALARM ON, AND CALL LIGHT WITHIN REACH. [facility] EZEKIEL.
--- NOTE | 2022-06-20 19:35 | NUR ---
RAW HIDE TRIMMER OPENING NOTE PATIENT RECEIVED IN BED, SLEEPING, AWAKENED WITH VERBAL AND TOUCH STIMULI. PATIENT IS A/O X 2. PATIENT ON 2 LPM O2 SUPPLEMENT VIA NC. TOLERATING WELL, BREATHING EVEN AND UNLABORED, NO SOB NOTED. PATIENT'S TELE MONITOR READS SR 80 BPM. JETER CATHETER DRAINING YELLOW URINE VIA GRAVITY. PATIENT HAS LEFT AC 2O G RUNNING IV FLUID AND A RIGHT FA IV ACCESS ON SALINE LOCKED. SAFETY MEASURES IN PLACE: BED LOCKED AND IN LOWEST POSITION, CALL LIGHT WITHIN REACH, SIDE RAILS UP X 2. WILL CONTINUE TO MONITOR PATIENT.
[2022-06-20 21:02] VITALS: BP 157/57
[2022-06-20] MEDS: ATORVASTATIN 40 MG TABLET PO SCH (21:16)
[2022-06-20] MEDS: *INSULIN REGULAR(HUMULIN R)HUM 100 UNIT/ML VIAL SQ PRN (21:38)
[2022-06-21 00:32] VITALS: BP 168/60
[2022-06-21 05:29] VITALS: BP 177/69
[2022-06-21 06:16] LABS: BASOPHILS % (AUTO) 0.4 % (0.0-2.0); EOSINOPHILS % (AUTO) 1.3 % (0.0-6.0); HEMATOCRIT 25 % (33-45); HEMOGLOBIN 8.5 g/dL (11.5-14.8); LYMPHOCYTES # (AUTO) 0.8 K/uL (0.8-4.8); LYMPHOCYTES % (AUTO) 10.2 % (20.0-44.0); MEAN CORPUSCULAR HGB CONC 34 g/dl (31.0-36.0); MEAN CORPUSCULAR VOLUME 89 fL (82-100); MONOCYTES # (AUTO) 0.6 K/uL (0.1-1.30); MONOCYTES % (AUTO) 8.3 % (2.0-12.0); NEUTROPHILS # (AUTO) 6.2 K/uL (1.8-8.9); NEUTROPHILS % (AUTO) 79.8 % (43.0-81.0); PLATELET COUNT (AUTO) 147 K/uL (150-450); RED BLOOD CELL COUNT(AUTO) 2.81 MIL/uL (4.0-5.2); WHITE BLOOD COUNT (AUTO) 7.8 K/uL (4.3-11.0)
[2022-06-21 06:28] LABS: CALCIUM, SERUM 7.7 mg/dL (8.5-10.1); CREATININE 1.9 mg/dL (0.6-1.3); MAGNESIUM 2.2 mg/dL (1.8-2.4); PHOSPHORUS 2.5 mg/dL (2.5-4.9); POTASSIUM 4.3 mmol/L (3.5-5.1)
[2022-06-21] MEDS: INSULIN REGULAR, HUMAN 100 UNIT/ML 3 ML VIAL SQ PRN ×4 (06:51→17:11)
--- NOTE | 2022-06-21 07:20 | NUR ---
INSURANCE CLAIMS REPRESENTATIVE OPENING NOTE RECEIVED PT IN BED, SLEEPING, EASILY AROUSED WITH VERBAL STIMULI. PATIENT IS A/O X 2. PATIENT ON 2 LPM O2 SUPPLEMENT VIA NC. TOLERATING WELL, BREATHING EVEN AND UNLABORED, NO SOB NOTED. PATIENT'S TELE MONITOR READS SR 80 BPM. JETER CATHETER DRAINING CLEAR YELLOW URINE VIA GRAVITY. PATIENT HAS LEFT AC 2O G RUNNING IV FLUID AND A RIGHT FA IV ACCESS ON SALINE LOCKED. ON PAPER CUTTING MACHINE OPERATOR WITH CURRENT READING OF SINUS RHYTHM @ 80 BPM. SAFETY MEASURES IN PLACE: BED LOCKED AND IN LOWEST POSITION, CALL LIGHT WITHIN REACH, SIDE RAILS UP X 2. WILL CONTINUE TO MONITOR PATIENT.
--- NOTE | 2022-06-21 07:20 | NUR ---
STOCK PARTS FABRICATOR CLOSING NOTE LEFT PT ASLEEP IN BED, EASILY AROUSED. PT A/O X2. ON O2 AT 2L/MIN VIA NASAL CANNULA, TOLERATING WELL. NO SOB NOTED. NOT IN ANY SIGN OF RESPIRATORY DISTRESS. ON TELE STRAP STITCHER WITH CURRENT READING OF SINUS RHYTHM. NO C/O CARDIAC DISTRESS AT THIS TIME. IV ACCESS IN RFA G #20 SALINE LOCK AND LAC G#20 INTACT AND PATENT WITH 1/2 NS INFUSING AT 100ML/HR. SAFETY MEASURES IN PLACE: BED IN LOWEST AND LOCKED POSITION, SIDE RAILS UPX2, BED ALARM ON, AND CALL LIGHT WITHIN REACH. WILL ENDORSE PT'S CARE TO AM SHIFT NURSE.
[2022-06-21] MEDS: PANTOPRAZOLE 40 MG TABLET.DR PO SCH (07:35)
[2022-06-21] MEDS: IV 1/2NS 1000 ML 1,000 ML IV SCH ×2 (07:35→17:31)
[2022-06-21] MEDS: BLOOD SUGAR DIAGNOSTIC 1 EACH STRIP VI SCH ×4 (07:35→22:00)
[2022-06-21 08:09] VITALS: BP 164/68
[2022-06-21] MEDS: LEVOTHYROXINE SODIUM 50 MCG TABLET PO SCH (08:32)
[2022-06-21] MEDS: FERROUS SULFATE (325 MG) 325 MG/TAB TABLET PO SCH ×2 (08:33→16:07)
[2022-06-21] MEDS: CARVEDILOL 12.5 MG TABLET PO SCH ×2 (08:33→16:08)
[2022-06-21] MEDS: AMLODIPINE BESYLATE 10 MG TABLET PO SCH (08:33)
[2022-06-21] MEDS: ASPIRIN EC 81 MG TABLET.DR PO SCH (08:34)
[2022-06-21] MEDS: ENOXAPARIN SODIUM 30 MG/0.3 ML DISP.SYRIN SQ SCH (08:35)
[2022-06-21] MEDS ORDERED: Z GUARD REMEDY 4 OZ OINT TP PRN (12:00)
[2022-06-21] MEDS: HYDROCODONE/APAP 5/325MG TABLET PO PRN (13:21)
--- NOTE | 2022-06-21 13:23 | NUR ---
RN NOTES: PHYSICIAN ASSISTANCE SUSANA HORNE TO ADVANCE DIET TO SOFT DIET, PATIENT HAS NO NAUSEA OR EPISODES OF VOMITING. ORDERS NOTED AND CARRIED OUT. PT MADE AWARE.
[2022-06-21 16:01] VITALS: BP 165/66
[2022-06-21] MEDS: DOXAZOSIN MESYLATE (1 MG) 1 MG TABLET PO SCH (17:07)
--- NOTE | 2022-06-21 18:38 | NUR ---
CBX OPERATOR CLOSING NOTE RECEIVED PT IN BED, SLEEPING, EASILY AROUSED WITH VERBAL STIMULI. PATIENT IS A/O X 2. PATIENT ON 2 LPM O2 SUPPLEMENT VIA NC. TOLERATING WELL, BREATHING EVEN AND UNLABORED, NO SOB NOTED. PATIENT'S TELE MONITOR READS SR 75 BPM. JETER CATHETER DRAINING CLEAR YELLOW URINE VIA GRAVITY. PATIENT HAS LEFT HAND 2O G RUNNING IV FLUID 1/2 NS 1L @ 100ML/HR PATENT, INTACT AND RUNNING WELL. SAFETY MEASURES IN PLACE: BED LOCKED AND IN LOWEST POSITION, CALL LIGHT WITHIN REACH, SIDE RAILS UP X 2. WILL CONTINUE TO MONITOR PATIENT. WILL ENDORSED TO NOC SHIFT FOR EZEKIEL.
--- NOTE | 2022-06-21 19:35 | NUR ---
HUMAN RESOURCE PROFESSIONAL OPENING NOTES: RECEIVED PATIENT IN BED, AWAKE, A/O X4. NO S/S OF DISTRESS NOTED. NO COMPLAIN OF PAIN. CALL LIGHT WITHIN REACH. BED ALARM ON. BED IN LOWEST AND LOCKED POSITION. WITH SCD'S ON. HEELS OFFLOADED. PER REPORT FROM DAYSHIFT RN JETER CATH WAS REMOVED AT 7PM, DUE TO VOID.ON SINUS 69.
[2022-06-21 20:00] VITALS: BP 168/58
[2022-06-21] MEDS: ATORVASTATIN 40 MG TABLET PO SCH (22:13)
[2022-06-21] MEDS: *INSULIN REGULAR(HUMULIN R)HUM 100 UNIT/ML VIAL SQ PRN (22:19)
--- NOTE | 2022-06-21 22:19 | NUR ---
BLOOD SUGAR CHECKED= 105, NO INSULIN GIVEN.
[2022-06-22] MEDS: IV 1/2NS 1000 ML 1,000 ML IV SCH ×3 (03:51→22:59)
[2022-06-22 04:00] VITALS: BP 168/59
[2022-06-22 05:26] VITALS: BP 168/59
[2022-06-22] MEDS: INSULIN REGULAR, HUMAN 100 UNIT/ML 3 ML VIAL SQ PRN ×3 (06:31→17:33)
--- NOTE | 2022-06-22 07:09 | NUR ---
MILLWORK ESTIMATOR OPENING NOTES RECEIVED PATIENT IN BED SLEEPING, A/Ox2, INDIAN SPEAKING. ON ROOM AIR NO S/S OF RESPIRATORY DISTRESS. ON BEDREST, ABLE TO STAND WITH ASSISTANCE. IV ACCES L HAND #22 RUNNING 1/2 NS @100 ML/HR, INTACT AND PATENT. ON TELE MONITORING SHOWING SINUS RHYTHM HR 74. NO C/O OF CARDIAC DISTRESS OR DISCOMFORT. SKIN ISSUES: SACRAL DTI, R HEEL DTI, DRESSINGS INTACT. SAFETY MEASURES IN PLACE: BED LOCKED AND IN LOWEST POSITION, SIDE RAILS UPx3, HOB ELEVATED, CALL LIGHT WITHIN REACH. WILL CONTINUE TO MONITOR.
[2022-06-22] MEDS: BLOOD SUGAR DIAGNOSTIC 1 EACH STRIP VI SCH ×4 (07:57→21:35)
[2022-06-22 08:00] VITALS: BP_SYST 144; BP_SYST 191; BP_DIAS 75; BP_DIAS 81
[2022-06-22] MEDS: PANTOPRAZOLE 40 MG TABLET.DR PO SCH (08:28)
[2022-06-22] MEDS: LEVOTHYROXINE SODIUM 50 MCG TABLET PO SCH (09:01)
[2022-06-22] MEDS: CARVEDILOL 12.5 MG TABLET PO SCH ×2 (09:01→17:18)
[2022-06-22] MEDS: AMLODIPINE BESYLATE 10 MG TABLET PO SCH (09:01)
[2022-06-22] MEDS: FERROUS SULFATE (325 MG) 325 MG/TAB TABLET PO SCH ×2 (09:01→17:18)
[2022-06-22] MEDS: ASPIRIN EC 81 MG TABLET.DR PO SCH (09:01)
[2022-06-22] MEDS: ENOXAPARIN SODIUM 30 MG/0.3 ML DISP.SYRIN SQ SCH (09:07)
[2022-06-22] MEDS: HYDROCODONE/APAP 10/325MG TABLET PO PRN (10:01)
[2022-06-22] MEDS: SENNOSIDES/DOCUSATE SODIUM 1 TAB TABLET PO SCH (11:39)
[2022-06-22 11:54] LABS: CALCIUM, SERUM 7.6 mg/dL (8.5-10.1); CREATININE 1.6 mg/dL (0.6-1.3); POTASSIUM 4.3 mmol/L (3.5-5.1)
[2022-06-22 12:00] VITALS: BP 130/59
[2022-06-22] MEDS: PROSOURCE / PROSTAT (PYXIS) 30 ML UDC GT SCH ×2 (13:00→17:33)
[2022-06-22 16:00] VITALS: BP 162/74
[2022-06-22] MEDS: DOXAZOSIN MESYLATE (1 MG) 1 MG TABLET PO SCH (17:18)
--- NOTE | 2022-06-22 19:18 | NUR ---
ELECTRICIAN CLOSING NOTES PATIENT IN BED RESTING A/Ox2, FRISIAN SPEAKING, DAUGHTER AT BEDSIDE. STABLE ON ROOM AIR NO S/S OF RESPIRATORY DISTRESS. ON BEDREST, ABLE TO STAND WITH ASSISTANCE. IV ACCES L HAND #22 RUNNING 1/2 NS @100 ML/HR, INTACT AND PATENT. ON TELE MONITORING SHOWING SINUS RHYTHM HR 70. NO C/O OF CARDIAC DISTRESS OR DISCOMFORT. SKIN ISSUES: SACRAL DTI, R HEEL DTI, DRESSINGS INTACT. ALL PRESCRIBED MEDICATION ADMINISTERED. SAFETY MEASURES MAINTAINED: BED LOCKED AND IN LOWEST POSITION, SIDE RAILS UPx3, HOB ELEVATED, CALL LIGHT WITHIN REACH. WILL ENDORSE TO NEXT SHIFT ANY EZEKIEL
--- NOTE | 2022-06-22 19:30 | NUR ---
RECEIVED PATIENT IN BED AWAKE A/Ox3, IRISH SPEAKING. ON ROOM AIR NO S/S OF RESPIRATORY DISTRESS. ON BEDREST. IV ACCES L HAND #22 INFUSING 1/2 NS @100 ML/HR, INTACT AND PATENT. ON TELE MONITOR SHOWING SINUS RHYTHM HR AT 80'S. NO C/O OF CARDIAC DISTRESS OR DISCOMFORT. SKIN ISSUES: SACRAL DTI, R HEEL DTI, DRESSINGS INTACT. SAFETY MEASURES IN PLACE: BED LOCKED AND IN LOWEST POSITION, SIDE RAILS UPx3, HOB SIGHTLY ELEVATED, CALL LIGHT WITHIN REACH. WILL CONTINUE PLAN OF CARE.
[2022-06-22 20:00] VITALS: BP 152/59
[2022-06-22] MEDS: HYDROCODONE/APAP 5/325MG TABLET PO PRN (21:35)
[2022-06-22] MEDS: ATORVASTATIN 40 MG TABLET PO SCH (21:35)
[2022-06-23] VITALS: BP 159/42
[2022-06-23] MEDS: INSULIN REGULAR, HUMAN 100 UNIT/ML 3 ML VIAL SQ PRN ×4 (00:03→17:22)
[2022-06-23] MEDS: HYDROCODONE/APAP 10/325MG TABLET PO PRN ×2 (00:13→08:44)
--- NOTE | 2022-06-23 06:32 | NUR ---
PATIENT IN BED ASLEEP. A/Ox3, KYRGYZ SPEAKING. ON ROOM AIR NO S/S OF RESPIRATORY DISTRESS. ON BEDREST. IV ACCES L HAND #22 INFUSING 1/2 NS @100 ML/HR, INTACT AND PATENT. ON TELE MONITOR SHOWING SINUS RHYTHM HR AT 80'S. NO C/O OF CARDIAC DISTRESS OR DISCOMFORT. SKIN ISSUES: SACRAL DTI, R HEEL DTI, DRESSINGS INTACT. DUE MEDS AND PRN MEDS GIVEN NEEDED AND ORDERED. SAFETY MEASURES MAINTAINED. BED LOCKED AND IN LOWEST POSITION, SIDE RAILS UPx3, HOB SIGHTLY ELEVATED, CALL LIGHT WITHIN REACH. WILL ENDORSE TO NEXT NURSE ON DUTY FOR CONTINUITY OF CARE.
[2022-06-23 06:48] LABS: BASOPHILS % (AUTO) 0.4 % (0.0-2.0); EOSINOPHILS % (AUTO) 1.2 % (0.0-6.0); HEMATOCRIT 24 % (33-45); HEMOGLOBIN 8.1 g/dL (11.5-14.8); LYMPHOCYTES # (AUTO) 1.2 K/uL (0.8-4.8); LYMPHOCYTES % (AUTO) 15.9 % (20.0-44.0); MEAN CORPUSCULAR HGB CONC 34 g/dl (31.0-36.0); MEAN CORPUSCULAR VOLUME 89 fL (82-100); MONOCYTES # (AUTO) 0.9 K/uL (0.1-1.30); MONOCYTES % (AUTO) 11.9 % (2.0-12.0); NEUTROPHILS # (AUTO) 5.2 K/uL (1.8-8.9); NEUTROPHILS % (AUTO) 70.6 % (43.0-81.0); PLATELET COUNT (AUTO) 157 K/uL (150-450); WHITE BLOOD COUNT (AUTO) 7.4 K/uL (4.3-11.0)
--- NOTE | 2022-06-23 07:08 | NUR ---
RESTAURANT FLOOR MANAGER OPENING NOTES RECEIVED PATIENT IN BED SLEEPING, A/Ox2, FINNISH SPEAKING. ON ROOM AIR NO S/S OF RESPIRATORY DISTRESS. ON BEDREST, ABLE TO STAND WITH ASSISTANCE. IV ACCESS L HAND #22 RUNNING 1/2 NS @100 ML/HR, INTACT AND PATENT. ON TELE MONITORING SHOWING SINUS RHYTHM HR 74. NO C/O OF CARDIAC DISTRESS OR DISCOMFORT. SKIN ISSUES: SACRAL DTI, R HEEL DTI, DRESSINGS INTACT. SAFETY MEASURES IN PLACE: BED LOCKED AND IN LOWEST POSITION, SIDE RAILS UPx3, HOB ELEVATED, CALL LIGHT WITHIN REACH. WILL CONTINUE TO MONITOR.
[2022-06-23 07:38] LABS: CALCIUM, SERUM 7.4 mg/dL (8.5-10.1); CREATININE 1.7 mg/dL (0.6-1.3); PHOSPHORUS 2.3 mg/dL (2.5-4.9); POTASSIUM 4.2 mmol/L (3.5-5.1)
[2022-06-23] MEDS: BLOOD SUGAR DIAGNOSTIC 1 EACH STRIP VI SCH ×4 (07:42→22:40)
[2022-06-23 08:00] VITALS: BP 166/68
[2022-06-23] MEDS: PANTOPRAZOLE 40 MG TABLET.DR PO SCH (08:41)
[2022-06-23] MEDS: LEVOTHYROXINE SODIUM 50 MCG TABLET PO SCH (08:41)
[2022-06-23] MEDS: ASPIRIN EC 81 MG TABLET.DR PO SCH (08:41)
[2022-06-23] MEDS: FERROUS SULFATE (325 MG) 325 MG/TAB TABLET PO SCH ×2 (08:41→16:58)
[2022-06-23] MEDS: SENNOSIDES/DOCUSATE SODIUM 1 TAB TABLET PO SCH (08:42)
[2022-06-23] MEDS: AMLODIPINE BESYLATE 10 MG TABLET PO SCH (08:43)
[2022-06-23] MEDS: CARVEDILOL 12.5 MG TABLET PO SCH ×2 (08:43→17:00)
[2022-06-23] MEDS: ENOXAPARIN SODIUM 30 MG/0.3 ML DISP.SYRIN SQ SCH (08:47)
[2022-06-23] MEDS: PROSOURCE / PROSTAT (PYXIS) 30 ML UDC GT SCH ×3 (08:48→16:58)
--- NOTE | 2022-06-23 09:30 | NUR ---
RN NOTES PATIENT REQUESTED PAIN MEDICATION, COMPLAINED OF PAIN 8/10, PRN NARCO GIVEN. WILL CONTINUE TO MONITOR.
[2022-06-23] MEDS: IV 1/2NS 1000 ML 1,000 ML IV SCH ×2 (09:44→20:08)
[2022-06-23] MEDS ORDERED: AMLODIPINE BESYLATE 10 MG TABLET PO SCH (12:30)
[2022-06-23] MEDS ORDERED: SORBITOL SOLUTION 70% 30 ML SOLUTION PO ONE (13:00)
[2022-06-23] MEDS ORDERED: LACTULOSE 10 G/15 ML UDC (PYXIS) PO ONE (13:00)
[2022-06-23 16:00] VITALS: BP 141/108
[2022-06-23] MEDS ORDERED: NEUTRA PHOS 1 POWD.PACKET PO ONE (16:00)
[2022-06-23] MEDS: DOXAZOSIN MESYLATE (1 MG) 1 MG TABLET PO SCH (17:24)
--- NOTE | 2022-06-23 18:42 | NUR ---
OIL TREATER CLOSING NOTES PATIENT IN BED SLEEPING, A/Ox2, SAMI SPEAKING. STABLE ON ROOM AIR NO S/S OF RESPIRATORY DISTRESS. ON BEDREST, ABLE TO STAND WITH ASSISTANCE. IV ACCES L HAND #22 RUNNING 1/2 NS @100 ML/HR, INTACT AND PATENT. ON TELE MONITORING SHOWING SINUS RHYTHM HR 74. NO C/O OF CARDIAC DISTRESS OR DISCOMFORT. SKIN ISSUES: SACRAL DTI, R HEEL DTI, DRESSINGS INTACT. ALL PRESCRIBED MEDICATION ADMINISTERED. SAFETY MEASURES MAINTAINED: BED LOCKED AND IN LOWEST POSITION, SIDE RAILS UPx3, HOB ELEVATED, CALL LIGHT WITHIN REACH. WILL ENDORSE TO NEXT SHIFT ANY EZEKIEL.
--- NOTE | 2022-06-23 19:50 | NUR ---
MS RN OPENING NOTE PATIENT AWAKE IN BED, ALERT/ORIENTED X 2, PRIMARILY ITALIAN SPEAKING, PT ABLE TO MAKE NEEDS KNOWN. PATIENT STABLE ON RA, NO S/S OF DISTRESS OR SOB NOTED, BREATHING EVEN AND UNLABORED. PT DENIES PAIN AT THIS TIME. IV ACCESS ON LEFT HAND #22G INTACT AND INFUSING NS @ 100 ML/HR. SAFETY MEASURES IN PLACE: CALL LIGHT WITHIN REACH, SIDE RAILS UP X 3, BED LOCKED IN LOWEST POSITION, BED ALARM ON. WILL CONTINUE TO MONITOR PATIENT
[2022-06-23 20:00] VITALS: BP 160/58
[2022-06-23] MEDS: ATORVASTATIN 40 MG TABLET PO SCH (22:40)
[2022-06-23] MEDS: *INSULIN REGULAR(HUMULIN R)HUM 100 UNIT/ML VIAL SQ PRN (22:59)
[2022-06-24] MEDS: IV 1/2NS 1000 ML 1,000 ML IV SCH ×2 (05:35→16:04)
[2022-06-24] MEDS: BLOOD SUGAR DIAGNOSTIC 1 EACH STRIP VI SCH ×4 (06:31→21:55)
[2022-06-24] MEDS: INSULIN REGULAR, HUMAN 100 UNIT/ML 3 ML VIAL SQ PRN ×4 (06:57→22:03)
--- NOTE | 2022-06-24 06:58 | NUR ---
MS RN CLOSING NOTE PATIENT SLEEPING IN BED, ALERT/ORIENTED X 2, PRIMARILY ESTONIAN SPEAKING, PT ABLE TO MAKE NEEDS KNOWN. PATIENT STABLE ON RA, NO S/S OF DISTRESS OR SOB NOTED, BREATHING EVEN AND UNLABORED. PT DENIED PAIN ALL SHIFT. IV ACCESS ON LEFT HAND #22G INTACT AND INFUSING NS @ 100 ML/HR. MEDICATIONS GIVEN ORDERED, PT NEEDS MET THROUGHOUT SHIFT. SAFETY MEASURES IN PLACE: CALL LIGHT WITHIN REACH, SIDE RAILS UP X 3, BED LOCKED IN LOWEST POSITION, BED ALARM ON. WILL ENDORSE TO DAYSHIFT NURSE FOR CONTINUITY OF CARE
[2022-06-24 07:39] LABS: CALCIUM, SERUM 7.5 mg/dL (8.5-10.1); CREATININE 1.7 mg/dL (0.6-1.3); PHOSPHORUS 2.6 mg/dL (2.5-4.9); POTASSIUM 4.3 mmol/L (3.5-5.1)
[2022-06-24 08:00] VITALS: BP 153/70
--- NOTE | 2022-06-24 08:30 | NUR ---
RN OPENING NOTES RECEIVED PATIENT AWAKE IN BED, ALERT/ORIENTED X 2, FRENCH SPEAKING, PT ABLE TO MAKE NEEDS KNOWN. PATIENT STABLE ON RA, WITH NO S/S OF DISTRESS OR SOB. BREATHING IS EVEN AND UNLABORED. PT DENIES PAIN AT THIS TIME. IV ACCESS ON LEFT HAND #22G INTACT AND INFUSING 1/2 NS @ 100 ML/HR. SAFETY MEASURES IN PLACE: CALL LIGHT WITHIN REACH, SIDE RAILS UP X 3, BED LOCKED AND IN LOWEST POSITION, BED ALARM ON. WILL CONTINUE TO MONITOR.
[2022-06-24] MEDS: PANTOPRAZOLE 40 MG TABLET.DR PO SCH (08:49)
[2022-06-24] MEDS: ASPIRIN EC 81 MG TABLET.DR PO SCH (09:10)
[2022-06-24] MEDS: SENNOSIDES/DOCUSATE SODIUM 1 TAB TABLET PO SCH (09:11)
[2022-06-24] MEDS: LEVOTHYROXINE SODIUM 50 MCG TABLET PO SCH (09:11)
[2022-06-24] MEDS: FERROUS SULFATE (325 MG) 325 MG/TAB TABLET PO SCH ×2 (09:11→17:31)
[2022-06-24] MEDS: ENOXAPARIN SODIUM 30 MG/0.3 ML DISP.SYRIN SQ SCH (09:13)
[2022-06-24] MEDS: CARVEDILOL 12.5 MG TABLET PO SCH ×2 (09:14→17:32)
[2022-06-24] MEDS: AMLODIPINE BESYLATE 10 MG TABLET PO SCH (09:14)
--- NOTE | 2022-06-24 09:27 | NUR ---
WOUND CARE CONSULT (LATE ENTRY): PT WAS SEEN FOR SKIN ASSESSMENT ON 06/21/22 AND NOTED TO HAVE INTACT PURPLE AREAS TO SACRUM AND RT HEEL. RECOMMENDATIONS WERE MADE FOR WOUND CARE AND SKIN PROTECTION AND WERE DISCUSSED WITH NURSING STAFF. PT ON ARNAV ISOFLEX LOW AIRLOSS BED. MD IN AGREEMENT WITH PLAN OF CARE.
--- NOTE | 2022-06-24 09:28 | NUR ---
WOUND CARE FOLLOW UP: PT SEEN FOR REASSESSMENT OF SACRAL DEEP TISSUE INJURY WHICH REMAINS INTACT AND RT HEEL DEEP TISSUE INJURY WHICH IS NOW SMALLER IN SIZE. RECOMMENDATIONS MADE FOR SKIN PROTECTION AND WOUND CARE. DISCUSSED WITH NURSING STAFF. PT IS INCONTINENT. IN AGREEMENT WITH PLAN OF CARE. PT IS ON LENORA ISOFLEX LOW AIRLOSS BED.
[2022-06-24] MEDS: PROSOURCE / PROSTAT (PYXIS) 30 ML UDC GT SCH ×3 (09:29→17:38)
[2022-06-24 16:20] VITALS: BP 154/60
[2022-06-24] MEDS: DOXAZOSIN MESYLATE (1 MG) 1 MG TABLET PO SCH (18:19)
--- NOTE | 2022-06-24 19:01 | NUR ---
RN CLOSING NOTES PATIENT AWAKE IN BED, ALERT/ORIENTED X2, PRIMARILY JAPANESE SPEAKING. PT ABLE TO MAKE NEEDS KNOWN. STABLE ON RA, WITH NO S/S OF DISTRESS OR SOB, BREATHING EVEN AND UNLABORED. PT DENIES PAIN AT THIS TIME. IV ACCESS ON RIGHT HAND 22G INTACT AND DRY, INFUSING 1/2NS @ 100 ML/HR. MEDICATIONS GIVEN ORDERED, PT NEEDS MET DURING SHIFT. AWAITING SNF AUTHORIZATION FOR PLACEMENT. SAFETY MEASURES IN PLACE: CALL LIGHT WITHIN REACH, TABLE WITHIN REACH, SIDE RAILS UP X2, BED LOCKED AND IN LOWEST POSITION, AND BED ALARM ON. WILL ENDORSE TO NIGHT NURSE FOR CONTINUITY OF CARE
--- NOTE | 2022-06-24 20:00 | NUR ---
RN OPENING NOTES RECEIVED PATIENT AWAKE IN BED. A/O X 2 AND ABLE TO MAKE NEEDS KNOWN. LAO SPEAKING BUT UNDERSTANDS A LITTLE BIT OF CHINESE. NO S/S DYSPNEA OR SOB. SpO2=97% RA. PT DENIES PAIN AND DISCOMFORT. IV ACCESS TO RIGHT HAND #22G INTACT AND INFUSING 1/2 NS @ 100 ML/HR. SAFETY MEASURES IN PLACE: BED IN LOWEST AND LOCKED POSITION, SIDE RAILS X 3, CALL LIGHT AND TRAY TABLE WITHIN REACH AND BED ALARM ON. WILL CONTINUE TO MONITOR.
[2022-06-24 21:33] VITALS: BP 179/74
[2022-06-24] MEDS: ATORVASTATIN 40 MG TABLET PO SCH (21:47)
[2022-06-25] MEDS: IV 1/2NS 1000 ML 1,000 ML IV SCH ×2 (01:38→11:30)
--- NOTE | 2022-06-25 06:13 | NUR ---
RN CLOSING NOTE PATIENT SLEEPING IN BED, ALERT/ORIENTED X 2, PRIMARILY AMHARIC SPEAKING, PT ABLE TO MAKE NEEDS KNOWN. PATIENT STABLE ON RA, NO S/S OF DISTRESS OR SOB NOTED, BREATHING EVEN AND UNLABORED. PT DENIED PAIN ALL SHIFT. IV ACCESS ON RIGHT HAND #22G INTACT AND INFUSING 1/2 NS @ 100 ML/HR. MEDICATIONS GIVEN ORDERED, PT NEEDS MET THROUGHOUT SHIFT. SAFETY MEASURES IN PLACE: CALL LIGHT WITHIN REACH, SIDE RAILS UP X 3, BED LOCKED IN LOWEST POSITION, BED ALARM ON. WILL ENDORSE TO DAYSHIFT NURSE FOR CONTINUITY OF CARE
[2022-06-25] MEDS: INSULIN REGULAR, HUMAN 100 UNIT/ML 3 ML VIAL SQ PRN ×2 (06:40→17:30)
[2022-06-25] MEDS: PANTOPRAZOLE 40 MG TABLET.DR PO SCH (06:48)
[2022-06-25] MEDS: BLOOD SUGAR DIAGNOSTIC 1 EACH STRIP VI SCH ×3 (06:49→17:26)
--- NOTE | 2022-06-25 07:20 | NUR ---
ms rn received on bed, awake,oriented x2,not in any form of distress, respirations even and unlabored,no sob noted, s/p left hip sx,dressing to sx site dry and intact,denies pain at this time, iv at right forearm infusing well,call light w/in reach, all needs attended.
[2022-06-25] MEDS: PROSOURCE / PROSTAT (PYXIS) 30 ML UDC GT SCH ×3 (09:00→17:00)
[2022-06-25] MEDS: ASPIRIN EC 81 MG TABLET.DR PO SCH (09:18)
[2022-06-25] MEDS: LEVOTHYROXINE SODIUM 50 MCG TABLET PO SCH (09:18)
[2022-06-25] MEDS: FERROUS SULFATE (325 MG) 325 MG/TAB TABLET PO SCH ×2 (09:18→17:26)
[2022-06-25] MEDS: SENNOSIDES/DOCUSATE SODIUM 1 TAB TABLET PO SCH (09:18)
[2022-06-25] MEDS: AMLODIPINE BESYLATE 10 MG TABLET PO SCH (09:19)
[2022-06-25] MEDS: CARVEDILOL 12.5 MG TABLET PO SCH ×2 (09:20→17:31)
--- NOTE | 2022-06-25 09:20 | NUR ---
ms rn due meds given,tolerated well.
[2022-06-25] MEDS: ENOXAPARIN SODIUM 30 MG/0.3 ML DISP.SYRIN SQ SCH (09:21)
[2022-06-25] MEDS ORDERED: DOCU100C36 PO (09:57)
[2022-06-25] MEDS ORDERED: ENOX30DI SQ (09:57)
[2022-06-25] MEDS ORDERED: hydrALAZINE HCL 50 MG TABLET PO SCH (10:00)
--- NOTE | 2022-06-25 14:00 | NUR ---
ms rn son at bedside, was notified of discharge.
[2022-06-25] MEDS: DOXAZOSIN MESYLATE (1 MG) 1 MG TABLET PO SCH (17:30)
[2022-06-25 17:31] VITALS: BP 183/81
--- NOTE | 2022-06-25 18:10 | NUR ---
ms rn patient transferred to [facility],no distress noted,all needs attended.
== END 2022-06-25 18:10 | DRG 480 ==
LOC: ER 20:10 → MED 06-17 00:50 → TELE 06-17 03:10 → ICU 06-18 16:51 → TELE 06-19 18:33 → MED 06-23 15:54
PROVIDERS: ADMIT Internal Medicine; ATTEND Nurse Practitioner Acute Care
PROC: 0QS706Z Reposition Left Upper Femur with Intramedullary Internal Fixation Device, Open Approach (ICD-10-PCS; principal; 2022-06-18)
DX: S72.142A Displaced intertrochanteric fracture of left femur, initial encounter for closed fracture (principal); N17.0 Acute kidney failure with tubular necrosis; N18.4 Chronic kidney disease, stage 4 (severe); I13.0 Hypertensive heart and chronic kidney disease with heart failure and stage 1 through stage 4 chronic kidney disease, or unspecified chronic kidney disease; I50.32 Chronic diastolic (congestive) heart failure; D68.59 Other primary thrombophilia; Z20.822 Contact with and (suspected) exposure to COVID-19; E11.22 Type 2 diabetes mellitus with diabetic chronic kidney disease; W01.0XXA Fall on same level from slipping, tripping and stumbling without subsequent striking against object, initial encounter; Y92.009 Unspecified place in unspecified non-institutional (private) residence as the place of occurrence of the external cause; S72.122A Displaced fracture of lesser trochanter of left femur, initial encounter for closed fracture; E03.9 Hypothyroidism, unspecified; Z95.1 Presence of aortocoronary bypass graft; I25.10 Atherosclerotic heart disease of native coronary artery without angina pectoris; Z79.890 Hormone replacement therapy; Z79.4 Long term (current) use of insulin; D63.8 Anemia in other chronic diseases classified elsewhere; E78.5 Hyperlipidemia, unspecified; Z74.09 Other reduced mobility
CPT/HCPCS: 36415; 71045-TC; 73020; 73502; 73552; 76770-TC; 80048-TC; 80076-TC; 81001; 82570-TC; 82962-TC; 83540-TC; 83735-TC; 84100-TC; 84300-TC; 85025-TC; 85730-TC; 86850-TC; 87081-TC; 87086-TC; 93307-TC; 93971-TC; 94799-TC; 97110-TC; 97112-TC; 97116-TC; 97530-TC; A4217; A6209; A6253; C1713; C9803; G0378; J0360; J0690; J1170; J1650; J1815; J1940; J2250; J2270; J2405; J2704; J2765; J3010; J3490; J7030; J7060; P9016